=== PATIENT | female | born 1930 | race Caucasian/White ===

== ENCOUNTER 2017-02-15 18:28 | Inpatient (IN) | payer OTHER ==
[~2017-02-15] VITALS: Ht 160 cm; Wt 72.1 kg
[~2017-02-15 18:28] MED LIST: FAMVIR 500MG500 MG PO; LOPERAMIDE2 MG PO; METFORMIN HCL750 MG PO; NEURONTIN100 MG PO; RAMIPRIL2.5 MG PO; SIMVASTATIN40 MG PO; SUPER B COMPLEX1 CAP PO; TRIAMTERENE/HCT1 TAB PO; VALTREX 500MG500 MG PO; XARELTO20 MG PO; ZITHROMAX Z-PA250 M1 PO
[2017-02-15 19:10] LABS: ABSOLUTE BASOPHIL COUNT 0 /CUMM (0.0-0.2); ABSOLUTE EOSINOPHIL COUNT 0.3 /CUMM (0.0-0.7); ABSOLUTE GRANULOCYTE CT 5.3 /CUMM (1.4-6.5); ABSOLUTE LYMPH COUNT 2.1 /CUMM (1.2-3.4); ABSOLUTE MONOCYTE COUNT 0.6 /CUMM (0.10-0.60); BASOPHIL % 0.2 % (0.0-2.0); EOSINOPHIL % 3.4 % (0-5); GRANULOCYTE % 63.6 % (42.2-75.2); HEMATOCRIT 36.1 % (37-47); MEAN CORPUSCULAR HGB 29.6 PG (27.0-31.0); MEAN CORPUSCULAR HGB CONC 33.1 G/DL (33.0-37.0); MEAN CORPUSCULAR VOLUME 89.5 FL (81.0-99.0); MEAN PLATELET VOLUME 6.7 FL (7.4-10.4); PLATELET COUNT 258 /CUMM (130-400); RBC DISTRIBUTION WIDTH 15.7 % (11.5-14.5); RED BLOOD CELL CT 4.03 /CUMM (4.20-5.40); WHITE BLOOD CELL COUNT 8.3 /CUMM (4.8-10.8)
--- NOTE | 2017-02-15 19:16 | ED DYSPNEA/ASTHMA COMPLAINT ---
History of Present Illness General Chief Complaint: Dyspnea (COPD, CHF, Other) Stated Complaint: SOB COUGH Source: patient Exam Limitations: no limitations Vital Signs & Intake/Output Vital Signs & Intake/Output Vital Signs Date Time Temp Pulse Resp B/P B/P Pulse O2 O2 Flow FiO2 Mean Ox Delivery Rate 02/16 1956 66 20 188/83 97 Nasal 2.0L Cannula 02/15 1947 95 Nasal 2.0L Cannula 02/157 168/102 02/15 1837 97.7 90 22 90 Room Air Allergies Coded Allergies: codeine (Severe, NAUSEA 02/15/17) Reconcile Medications Acetaminophen 500 MG TABLET 2 TAB PO BID PAIN (Reported) Dabigatran (Pradaxa) 75 MG CAPSULE 1 CAP PO BID BLOOD THINNER (Reported) Simvastatin (Simvastatin*) 40 MG TABLET 1 TAB PO QPM CHOLESTEROL (Reported) Vitamin B Complex 1 EACH TABLET 1 TAB PO DAILY SUPPLEMENT (Reported) Triage Note: 86F C/O SOB X1 DAY, NO LEG SWELLING. DENIES WORSENING SOB WITH EXERTION. O2 SAT 86-92% AT REST. ENDORSES DRY NONPRODUCTIVE COUGH. EKG COMPLETED ON ARRIVAL REPORTS HEADACHE AND MILD DIZZINESS. -N/V/D. DENIES ACTIVE CP OR PAIN WITH BREATHING. AAOX3. Triage Nurses Notes Reviewed? yes Onset: Gradual Duration: day(s): (2-3) Timing: recent history Severity: mild, moderate Activities at Onset: EATING Associated Symptoms: SHORTNESS OF BREATH, PALPITATIONS HPI: 86 year old female with history of PAF on pradaxa, high cholesterol presents to the ER with chief complaint of shortness of breath and feeling like she has run a race after meals for 2-3 days. No fever, chills, cough. They did note her wheezing yesterday. TOday upon arrival to the ER she reports anterior chest pressure. Past History Travel History Traveled to [place] past 21 day No Medical History Any Pertinent Medical History? 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 No Review of Systems Review of Systems Constitutional: Denies: chills, fever. EENTM: Reports: no symptoms. Respiratory: Reports: short of breath. Denies: cough, sputum production. Cardiovascular: Reports: chest pain, palpitations. Denies: peripheral edema, syncope. GI: Denies: abdominal pain. Genitourinary: Reports: no symptoms. Musculoskeletal: Reports: no symptoms. Skin: Reports: no symptoms. Neurological/Psychological: Reports: no symptoms. Hematologic/Endocrine: Denies: bruising, bleeding, polyuria, polydipsia. Immunologic/Allergic: Reports: no symptoms. All Other Systems: Reviewed and Negative Physical Exam Physical Exam General Appearance: well developed/nourished, alert, awake Head: atraumatic, normal appearance Eyes: Bilateral: normal appearance, PERRL, EOMI. Ears, Nose, Throat: normal pharynx, normal ENT inspection, hearing grossly normal Neck: normal inspection, supple, full range of motion Respiratory: normal breath sounds, chest non-tender, no respiratory distress Cardiovascular: regular rate/rhythm Peripheral Pulses: 2+ radial (R), 2+ radial (L) Gastrointestinal: normal bowel sounds, soft, non-tender Extremities: normal inspection Neurologic/Psych: no motor/sensory deficits, awake, alert, oriented x 3, normal mood/affect Skin: intact, normal color, warm/dry Core Measures ACS in differential dx? Yes CVA/TIA Diagnosis No Sepsis Present: No Sepsis Focused Exam Completed? No Progress Differential Diagnosis: AMI, CHF, pulmonary embolism, pneumonia Plan of Care: Orders Procedure Date/time Status OXYGEN 02/17 UNK Complete OXYGEN DAILY CHARGE 02/17 UNK Complete OXYGEN 02/16 UNK Complete OXYGEN DAILY CHARGE 02/16 UNK Complete OXYGEN SETUP CHG 02/15 UNK Complete OXYGEN 02/15 UNK Complete OXYGEN TRANSPORT 02/15 UNK Complete Patient is pain-free after nitroglycerin ointment. Troponin is negative. Chest x-ray shows cardiomegaly mild vascular congestion. According to the son no history of congestive heart failure, no previous diuretic use. She had an outpatient echocardiogram done by Dr. Joshi approximately 3-4 months ago. Results are unknown. We'll discuss with hospitalist for admission. Diagnostic Imaging: Viewed by Me: Radiology Read. Discussed w/RAD: Radiology Read. CXR Impression: PATIENT: ROMEL SHAIKH PRESENT AGE: 86 PATIENT ACCOUNT NO: [id number] : [birth year] LOCATION: [facility] ORDERING PHYSICIAN: Angie Urban MD SERVICE DATE: 02/15/17 EXAM TYPE: RAD - XRY-CHEST XRAY , TWO VIEWS EXAMINATION: XR CHEST, 2 VIEWS CLINICAL INFORMATION: Shortness of breath. O2 sats 86 percent. Rule out pneumonia. COMPARISON: 12/31/2014 TECHNIQUE : AP and lateral views of the chest were obtained. FINDINGS: Cardiac silhouette is enlarged. There is pulmonary venous congestion and interstitial edema. No alveolar edema. No focal consolidation is identified. No pleural effusion or pneumothorax. Lung volumes appear decreased as compared to prior. Bones are osteopenic. No acute osseous abnormalities are identified in the thoracal lumbar spine. Calcific atherosclerosis is present in the abdominal aorta. Surgical clips are present in the right upper quadrant. IMPRESSION: Cardiomegaly with pulmonary venous congestion and interstitial edema, most consistent with CHF. DICTATED BY: Ibrahima Snell MD DATE/TIME DICTATED:02/15/171928 SUPPLY CHAIN DESIGN MANAGER:LISE DATE/TIME TRANSCRIBED:02/15/171928 CONFIDENTIAL, DO NOT COPY WITHOUT APPROPRIATE AUTHORIZATION. <Electronically signed in Other Vendor System> SIGNED BY: Ibrahima Snell MD 02/15/171934 Initial ED EKG: NSR, DIFFUSE ST DEPRESSIONS, PAC'S Prior EKG: unchanged Rhythm Strip: normal sinus rhythm Departure Departure Time of Disposition: 2099 Disposition: STILL A PATIENT Condition: Stable Clinical Impression Primary Impression: CHF (congestive heart failure) Referrals: Madelyn ROJAS,Robb Villareal MD,Hernan [place] (PCP/Family) Departure Forms: Customer Survey General Discharge Information Admission Note Spoke With: Du Armijo MD Documentation of Exam: Documentation of any treatments & extenuating circumstances including Concerns Regarding Discharge (functional status, medication knowledge or non-compliance, living conditions, etc.) that warrant an admission rather than observation: [ TELE MONITOR, SERIAL EKG/TORPONIN, CAREFUL DIURESIS, MONITOR I/O, ECHOCARDIOGRAM , CONTINUE PRADAXA, CARDIOLOGY CONSULTATION] Critical Care Note Critical Care Note Critical Care Time: 30-74 min
--- NOTE | 2017-02-15 19:35 | RADIOLOGY REPORT ---
EXAMINATION: XR CHEST, 2 VIEWS CLINICAL INFORMATION: Shortness of breath. O2 sats 86 percent. Rule out pneumonia. COMPARISON: 12/31/2014 TECHNIQUE: AP and lateral views of the chest were obtained. FINDINGS: Cardiac silhouette is enlarged. There is pulmonary venous congestion and interstitial edema. No alveolar edema. No focal consolidation is identified. No pleural effusion or pneumothorax. Lung volumes appear decreased as compared to prior. Bones are osteopenic. No acute osseous abnormalities are identified in the thoracal lumbar spine. Calcific atherosclerosis is present in the abdominal aorta. Surgical clips are present in the right upper quadrant. IMPRESSION: Cardiomegaly with pulmonary venous congestion and interstitial edema, most consistent with CHF.
[2017-02-15 19:43] LABS: PT 12.6 SEC (9.4-12.5); PTT 35 SEC (25-37)
[2017-02-15] MEDS ORDERED: PRADAXA75 M1 PO (20:20)
[2017-02-15] MEDS ORDERED: SIMVASTATIN40 M1 PO (20:20)
[2017-02-15] MEDS ORDERED: VITAMIN B COMP1 EAC1 PO (20:21)
[2017-02-15] MEDS ORDERED: ACETAMINOPHEN500 M4 PO (20:21)
--- NOTE | 2017-02-15 21:47 | History & Physical ---
Salty ROJAS,Geovanni 02/15/17 2146: General Information and HPI History of Present Illness: Ms. Fragoso is an 86-year-old female with past medical history of hypertension, hyperlipidemia, peripheral vascular disease, diet-controlled diabetes mellitus, breast cancer, dementia, atrial fibrillation on dabigatran who presents with shortness of breath. Patient has dementia and is unable to provide much of the history. Per her family, she began complaining of shortness of breath 2 days ago. She felt like she had run a race after walking a short distance from the kitchen to the living room. She also had associated heartburn and palpitations. Today, she had increased wheezing and labored breathing and he decided to bring her in for further evaluation. She sleeps on one pillow. She has had increased salt intake last week. She has also noticed increased bloating. No cough, fever, sick contacts, or chest pain. At time of interview, she said she felt good. She lives by herself, never smoker, drinker, or drugs. Allergies/Medications Allergies: Coded Allergies: codeine (Severe, NAUSEA 02/15/17) Home Med list Acetaminophen 500 MG TABLET 2 TAB PO BID PAIN (Reported) Dabigatran (Pradaxa) 75 MG CAPSULE 1 CAP PO BID BLOOD THINNER (Reported) Simvastatin (Simvastatin*) 40 MG TABLET 1 TAB PO QPM CHOLESTEROL (Reported) Vitamin B Complex 1 EACH TABLET 1 TAB PO DAILY SUPPLEMENT (Reported) Past History Travel History Traveled to [place] past 21 day No Medical History Neurological: NONE EENT: HARD OF HEARING Cardiovascular: hypertension, hyperlipidemia, left leg claudication Respiratory: NONE Gastrointestinal: NONE Hepatic: NONE Renal: NONE Musculoskeletal: NONE Psychiatric: NONE Endocrine: diabetes 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 EENTM: Reports: no symptoms. Cardiovascular: Reports: see HPI. Respiratory: Reports: see HPI. GI: Reports: see HPI. Genitourinary: Reports: no symptoms. Musculoskeletal: Reports: no symptoms. Skin: Reports: no symptoms. Neurological/Psychological: Reports: no symptoms. Hematologic/Endocrine: Reports: no symptoms. Immunologic/Allergic: Reports: no symptoms. All Other Systems: Reviewed and Negative Exam & Diagnostic Data Last 24 Hrs of Vital Signs/I&O Vital Signs Date Time Temp Pulse Resp B/P B/P Pulse O2 O2 Flow FiO2 Mean Ox Delivery Rate 02/15 2245 98.6 68 18 150/82 95 Nasal 2.0L Cannula 02/15 2245 95 Nasal 2.0L Cannula 02/156 98.5 70 20 170/84 96 Nasal 2.0L Cannula 02/15 1956 66 20 188/83 97 Nasal 2.0L Cannula 02/15 1947 95 Nasal 2.0L Cannula 02/15 1847 168/102 02/15 1837 97.7 90 22 90 Room Air Physical Exam General Appearance Alert, Oriented X3, Cooperative, No Acute Distress Skin No Rashes HEENT Atraumatic Cardiovascular Regular Rate, Normal S1, Normal S2, systolic murmur, JVD Lungs crackles Abdomen Normal Bowel Sounds, Soft, mass in middle of abdomen, mildly tender to palpation Extremities 1+ pitting edema bilaterally Vascular Normal Pulses Last 24 Hrs of Labs/Dagoberto: Laboratory Tests 02/15/17 1855: Anion Gap 14, Estimated GFR > 60, BUN/Creatinine Ratio 22.0, Glucose 146 H, Calcium 9.6, Total Bilirubin 1.3, AST 37 H, ALT 40, Alkaline Phosphatase 70, Troponin I 0.02, Xox-O-Vcuygmshjjt Pept 1130 H, Total Protein 7.9, Albumin 4.6, Globulin 3.3, Albumin/Globulin Ratio 1.4, PT 12.6 H, INR 1.20 H, APTT 35, CBC w Diff NO MAN DIFF REQ, RBC 4.03 L, MCV 89.5, MCH 29.6, RDW 15.7 H, MPV 6.7 L , Gran % 63.6, Lymphocytes % 25.1, Monocytes % 7.7, Eosinophils % 3.4, Basophils % 0.2, Absolute Granulocytes 5.3, Absolute Lymphocytes 2.1, Absolute Monocytes 0.6, Absolute Eosinophils 0.3, Absolute Basophils 0, PUBS MCHC 33.1 Assessment/Plan Assessment: Ms. Fragoso is an 86-year-old female with past medical history of hypertension, hyperlipidemia, peripheral vascular disease, diet-controlled diabetes mellitus, breast cancer, dementia, atrial fibrillation on dabigatran who presents with shortness of breath. On presentation, vital signs were T 97.7, HR 90, RR 22, BP 168/102, saturating 90% on room air. Laboratories were significant for normal CBC, sodium 146, glucose 146, AST 37, calcium 9.6, total bilirubin 1.3, ALT 40, alkaline phosphatase 70, troponin 0.02, BNP 1130, INR 1.20. Chest x-ray was consistent with CHF. She received furosemide and nitroglycerin in the emergency room. She'll be admitted to telemetry and treated for the following problems: 1. New onset heart failure #New onset heart failure: Patient had a recent echocardiogram 3 months ago as an outpatient that was apparently normal though we cannot see this record. The last echocardiogram in the system was in 2013 that was normal. It is unclear what caused her to now go into heart failure. Potentially, she has had rapid ventricular rate with her atrial fibrillation causing cardiomyopathy. Additionally, she has had poor diet for the past week with increased salt intake that can cause an acute decompensation. She has responded to furosemide with appropriate diuresis and improvement in respiratory symptoms. -Continue furosemide 20 mg IV daily -Cardiology consult -Diltiazem 30 mg every 8 hours -EKG and troponins 3 -Lipid panel -Daily weights -TTE -TSH/T4 #Chronic medical problem: Diabetes mellitus, atrial fibrillation, hyperlipidemia -Continue home dabigatran and simvastatin -Accu-Cheks DVT prophylaxis with enoxaparin Heart healthy diet DNR/DNI As Ranked By This Provider Problem List: 1. CHF (congestive heart failure) Core Measures/Misc (11/04) Acute Coronary Syndrome ACS Diagnosis: No Congestive Heart Failure Congestive Heart Failure Diagnosis Yes Last Known EF % 65 No THOMAS/ARB d/t Medical Contraindication Cerebrovascular Accident CVA/TIA Diagnosis: No VTE (View Protocol) VTE Risk Factors Age>40 No Mechanical VTE Prophylaxis d/t N/A MechProphylax Ordered No VTE Pharm Prophylaxis d/t NA PharmProphylax ordered Sepsis (View protocol) Sepsis Present: No Aleksander ROJAS, [facility] 02/15/17 2250: Attending MD Review Statement Attending Statement Attending MD Statement: examined this patient, discuss w/resident/PA/LENS SILVERER, agreed w/resident/PA/LENS SILVERER, discussed with family, reviewed images, amended to note Attending Assessment/Plan: 86 yo F with h/o HTN, HLD, T2DM (not on meds), Paroxysmal Afib on pradaxa, [employer], dementia with short term memory loss, is brought in by family for 3 day h/o exertional dyspnea. Son who is a PA at an Urgent care clinic provides history. At baseline, patient is sedentary but can carry out activities of daily living. She lives alone, makes her breakfast and has an aide who comes in twice a day. He reports patient was doing well until after [place] when she developed exertional dyspnea (felt like she had run a marathon), palpitations and heartburn symptoms. Family also noted that she gets short of breath especially after a meal and today was noted to be wheezing. They denied any recent weight gain or lower extremity edema. Patient did consume salty food over the holidays. Patient has no underlying cardiac history, follows with Dr. Joshi for Afib, had an echo 3 months back that was normal. Upon ER arrival, she c/o chest pressure symptoms and was given nitropaste with some effect. Vitals stable. Exam: AAO, in no respiratory distress, able to speak in full sentences, MMM, JVD+, Chest bibasilar crackles+, Heart S1S2 regular, systolic murmur+, Abd soft, mild discomfort on left abdomen, LE: 1+ pitting edema. Peripheral pulses well felt. Labs: no leukocytosis, INR 1.20, Na 146, creat 0.5, glucose 146, trop neg, proBNP 1130. CXR: cardiomegaly with pulmonary venous congestion and interstitial edema, most consistent with CHF. EKG: SR with multiple PVC's. Echo (2014): EF > 65%, mild LVH, mild to mod TR. Assessment and plan: 1. New onset congestive heart failure 2. Chest pain at rest 3. Paroxysmal atrial fibrillation 4. Essential hypertension - Admit to telemetry - Daily weights, strict I/O's - IV lasix 20 daily, monitor renal functions and uptitrate lasix based on diuresis - Serial EKG and troponin - Obtain Echo - Cardio consult - Monitor for arrhythmias - Unclear as to why patient is not on any rate control medications no CCB or BB. It is possible that she may have underlying episodes of rapid Afib which she experiences as palpitations, thus placing her at risk for CHF in addition to her salt intake. - Initiate cardizem 30 mg Q8 - Check TSH and free T4 - Continue pradaxa and simvastatin - Diabetes last A1c was 7.2 (Nov 2016), monitor accucheks, place on insulin only if sugars > 200 DVT ppx Pradaxa. DNR/I. Nazanin ROJAS,Travis 02/16/17 0056: Resident Review Statement Resident Statement: examined this patient, discussed with advisory intern, agreed with advisory intern, discussed with family, reviewed EMR data (avail) Other Findings: Patient is an 86-year-old female with significant past medical history of hypertension, not on medication, hyperlipidemia on medication, diabetes -diet controlled, history of breast cancer, atrial fibrillation on dabigatran, presented with chief complaints of gradually progressive shortness of breath since last 3 days. Most of the history is taken from the family including son and the daughter. Patient is hard of hearing, although taking part in conversation. According to the son, patient started having shortness of breath since February 13. Initially she was complaining of palpitation which lasted for a few seconds and afterwards she felt short of breath, and told the son that she feels like she had to run a race while walking, even from kitchen to the living room. She was also feeling fullness in her belly, heartburn. Today she started wheezing, so back to the [facility]. Recently she is not compliant with her medication, she had increased salt and fluid intake. She denies for any chest pain, diaphoresis, dizziness, nausea, vomiting, fever, sick contacts. She is following Dr. Joshi. Her last visit was 1-2 weeks ago. She had a echocardiogram around 3 months ago and according to the son, everything was fine. According to son, she has become more demented since last 2 or 3 years and had evaluation for it. No etiology has been found till now. She does not have recent memories. She lives alone, and person from healthcare comes twice a week.. ED course -vital signs temperature 97.7, pulse 90, respiratory rate 22, blood pressure 168/102, SPO2 90% on room air. Blood workup showed hemoglobin 12.0, hematocrit 36.1, platelet count 258, serum sodium 146, potassium 3.7, BUN 11, creatinine 0.5, glucose 146, AST 37, proBNP 1130, troponin 0.02.EKG showed -NSR, LA - 152, QRS 100.CXR showed -Cardiomegaly with pulmonary venous congestion and interstitial edema, most consistent with CHF. She was given 20 milligrams of Lasix, and nitroglycerin ointment in the ED. She was admitted to telemetry floor for further cardiac monitoring. Assessment and plan - Patient is 86-year-old female with significant past medical history of atrial fibrillation on anticoagulation and diabetes presented with chief complaints of sudden onset of palpitation, followed by shortness of breath . Chest x-ray showed evidence of pulmonary edema with congestion. It seems patient had CHF, which was precipitated either by uncontrolled salt intake/food intake or underlying NC or paroxysmal atrial fibrillation. It can be a possibility that she had PE. Acute CHF under evaluation * We will admit the patient to telemetry floor * We'll do serial troponins and EKG * We will start the patient on injection furosemide 20 milligrams IV daily * Daily weight * Strick intake output charting * We will start the patient on tablet diltiazem, 30 milligrams every 8 * Will obtain cardiology recommendation * follow echo Atrial fibrillation on oral anticoagulant * We will continue tablet Pradaxa 75 milligrams twice a day Hyperlipidemia - * We'll continue the patient on tablet Atorvastatin 40 Milligrams Daily * We will follow the lipid profile tomorrow Type 2 diabetes - * Fingerstick every 6 hourly Diet-heart healthy diet with fluid restriction 1000cc, low sodium diet DVT prophylaxis -Pradaxa CODE STATUS -DNR/DNI ( reconfirmed from Son)
[2017-02-15 22:45] VITALS: BP 150/82
--- NOTE | 2017-02-15 22:51 | Admission Certification ---
Admission Certification Certification Statement - As attending physician, I certify that at the time of - admission, based on clinical presentation, severity of - symptoms, need for further diagnostic testing and - therapeutic interventions, and risk of adverse outcomes - without in-hospital treatment, in my clinical assessment, - this patient requires an acute hospital stay for a minimum - of two nights or longer. I have also considered psychsocial - factors such as support system, advanced age, financial - issues, cognitive issues, and failed out-patient treatments, - past re-admission history, safety of patient, and lack of - compliance as applicable. Specific rationale supporting this admission is: New onset congestive heart failure.
[2017-02-16 06:52] VITALS: BP 136/60
--- NOTE | 2017-02-16 08:41 | PN- Housestaff ---
Blade ROJAS,[facility] 02/16/17 0841: Subjective Follow-up For: New onset congestive heart failure Subjective: Patient seen and examined. Offers no complaints. No overnight acute events. Denies Shortness of breath chest pain fevers chills. Review of Systems Constitutional: Reports: see HPI. Objective Last 24 Hrs of Vital Signs/I&O Vital Signs Date Time Temp Pulse Resp B/P B/P Pulse O2 O2 Flow FiO2 Mean Ox Delivery Rate 02/16 0800 Nasal 2.0L Cannula 02/16 0656 78 136/60 02/16 0652 98.5 72 18 136/60 97 Nasal Cannula 02/16 0233 80 146/78 02/16 0000 Nasal 2.0L Cannula 02/15 2245 98.6 68 18 150/82 95 Nasal 2.0L Cannula 02/15 224 95 Nasal 2.0L Cannula 02/15 2146 98.5 70 20 170/84 96 Nasal 2.0L Cannula 02/15 1956 66 20 188/83 97 Nasal 2.0L Cannula 02/15 1947 95 Nasal 2.0L Cannula 02/15 1847 168/102 02/15 1837 97.7 90 22 90 Room Air Intake & Output 02/16 1600 02/16 0800 02/16 0000 Intake Total 120 Output Total 600 Balance -480 Intake, Oral 120 Output, Urine 600 Patient 159 lb 160 lb Weight Weight Chair scale Measurement Method Physical Exam General Appearance: Alert, Oriented X3, Cooperative Current Medications: Current Medications Sig/Denisa Start time Last Medication Dose Route Stop Time Status Admin Acetaminophen 650 MG Q6-PRN PRN 02/16 0030 AC 02/16 PO 0045 Atorvastatin Calcium 40 MG 1700 02/16 1700 AC PO Dabigatran 75 MG BID 02/15 2245 AC 02/16 PO 0914 Diltiazem HCl 30 MG Q8 02/16 0112 AC 02/16 PO 0656 Furosemide 20 MG DAILY 02/16 1000 AC 02/16 IV 0914 Furosemide 0 .STK-MED ONE 02/15 2023 DC IV Furosemide 20 MG ONCE ONE 02/15 2000 DC 02/15 IV 02/15 2001 2030 Insulin Aspart 0 TIDAC 02/16 1200 AC 02/16 SC 1221 Magnesium Sulfate 1 GM ONCE ONE 02/16 1115 AC 02/16 Dextrose/Water 100 ML IV 02/16 1514 1221 Nitroglycerin 0 .STK-MED ONE 02/15 193 [facility] Nitroglycerin 0.5 GM ONCE ONE 02/15 1930 DC 02/15 TOP 02/15 Potassium Chloride 40 MEQ ONCE ONE 02/16 1115 DC 02/16 PO 02/16 1116 1221 Last 24 Hrs of Lab/Dagoberto Results Last 24 Hrs of Labs/Mics: Laboratory Tests 02/16/17 0646: Anion Gap 14, Estimated GFR > 60, BUN/Creatinine Ratio 18.0, Magnesium 1.4 L, Troponin I 0.03, Triglycerides 102, Cholesterol 147, LDL Cholesterol, Calc 70, HDL Cholesterol 57, Cholesterol/HDL Ratio 3, TSH &T3 &Free T4 Intrp 1.130 02/16/17 0100: Troponin I 0.03 02/15/17 1855: Anion Gap 14, Estimated GFR > 60, BUN/Creatinine Ratio 22.0, Glucose 146 H, Calcium 9.6, Total Bilirubin 1.3, AST 37 H, ALT 40, Alkaline Phosphatase 70, Troponin I 0.02, Ghx-D-Tbbtnrqknkr Pept 1130 H, Total Protein 7.9, Albumin 4.6, Globulin 3.3, Albumin/Globulin Ratio 1.4, PT 12.6 H, INR 1.20 H, APTT 35, CBC w Diff NO MAN DIFF REQ, RBC 4.03 L, MCV 89.5, MCH 29.6, RDW 15.7 H, MPV 6.7 L , Gran % 63.6, Lymphocytes % 25.1, Monocytes % 7.7, Eosinophils % 3.4, Basophils % 0.2, Absolute Granulocytes 5.3, Absolute Lymphocytes 2.1, Absolute Monocytes 0.6, Absolute Eosinophils 0.3, Absolute Basophils 0, PUBS MCHC 33.1 Assessment/Plan Assessment: Ms. Fragoso is an 86-year-old female with past medical history of hypertension, hyperlipidemia, peripheral vascular disease, diet-controlled diabetes mellitus, breast cancer, dementia, atrial fibrillation on dabigatran who presents with shortness of breath. On presentation, vital signs were T 97.7, HR 90, RR 22, BP 168/102, saturating 90% on room air. Laboratories were significant for normal CBC, sodium 146, glucose 146, AST 37, calcium 9.6, total bilirubin 1.3, ALT 40, alkaline phosphatase 70, troponin 0.02, BNP 1130, INR 1.20. Chest x-ray was consistent with CHF. She received furosemide and nitroglycerin in the emergency room. She'll be admitted to telemetry and treated for the following problems: 1. New onset heart failure #New onset heart failure: Patient had a recent echocardiogram 3 months ago as an outpatient that was apparently normal though we cannot see this record. The last echocardiogram in the system was in 2013 that was normal. It is unclear what caused her to now go into heart failure. Potentially, she has had rapid ventricular rate with her atrial fibrillation causing cardiomyopathy. Additionally, she has had poor diet for the past week with increased salt intake that can cause an acute decompensation. She has responded to furosemide with appropriate diuresis and improvement in respiratory symptoms. * Continue furosemide 20 mg IV daily * Cardiology consult palced with dr. Gutierrez * Discontinue Diltiazem 30 mg * Lipid panel WNL * Daily weights, monitor ins and outs,fluid restriction 1000cc, low sodium diet * Echocardiogram pending * TSH/T4 within normal limits #Chronic medical problem: Diabetes mellitus, atrial fibrillation, hyperlipidemia -Continue home dabigatran and simvastatin -Accu-Cheks and sliding SS DVT prophylaxis with enoxaparin Heart healthy diet DNR/DNI Problem List: 1. CHF (congestive heart failure) Pain Ratin Pain Location: n/a Pain Goal: Pain 4 or less Pain Plan: prn Tomorrow's Labs & Rationales: cbc bep Karena ROJAS,[facility] 02/16/17 1320: Attending MD Review Statement Attending Statement Attending MD Statement: examined this patient, discuss w/resident/PA/CANDY MIXER, agreed w/resident/PA/CANDY MIXER, discussed with family, reviewed EMR data (avail), discussed with nursing, amended to note Attending Assessment/Plan: Patient seen and examined. Resting comfortably not in any acute distress. No events overnight reported by nursing staff. She remains in normal sinus rhythm on telemetry. She denies chest pain. She denies shortness of breath. She denies palpitations. Family reports she is unable to provide a reliable history however has been no complaints of palpitations until the last few days. On examination heart sounds are regular. She has no jugular venous distention Lungs are clear to auscultation bilaterally. Abdomen is soft and nontender. She has no peripheral edema. Recommendations: -Patient was not on any rate control medications at home or any antihypertensive medications. It is likely she has not had the need for these medications prior to hospitalization. Following discussion with the cardiology service we have agreed on discontinuing the Cardizem that was started yesterday a monitor patient on telemetry service under 24 hours and keep an anion her blood pressure. If she remains in normal sinus rhythm and blood pressure is acceptable we will hold off starting any new medications and having the patient follow-up with her freelance recruiter as an outpatient. Outpatient cardiac monitoring may be considered particularly if patient continues to report palpitations on and off at home. -Clinically she does not appear volume overloaded at present. Chest x-ray did show evidence of volume congestion and interstitial edema. I agree with continuing IV Lasix 20 mg today. We will reevaluate need for diuretic therapy at the time of discharge. - Monitor input output daily with and serum chemistry. -Supplement potassium orally and repeat chemistry in a.m.
--- NOTE | 2017-02-16 14:23 | Cons- Cardiology ---
General Information and HPI Consulting Request Date of Consult: 02/16/17 Requested By: Aleksander ROJAS,Du Reason for Consult: Atrial fibrillation Source of Information: patient, family, old records Exam Limitations: poor historian History of Present Illness: This is an 86-year-old female with a past medical history of paroxysmal atrial fibrillation on Pradaxa, dementia, diet-controlled diabetes, and hyperlipidemia who presented to [facility] with approximate 2 days of increased dyspnea. The patient is a somewhat limited historian but I spoke to her family and apparently she was more short of breath in the last 2 days and also had some intermittent palpitations. No increasing lower extremity edema. Did consume some extra salty food over the recent holidays. Apparently she saw Dr. Joshi in the office quite recently and was in her usual state of health with no active complaints. She denied any headache, slurring of speech, or syncope. On my interview with her today she denied any active symptoms and feels at baseline. Denies any recent bleeding or recurrent falls. On my interview with her she denied any chest pain. Allergies/Medications Allergies: Coded Allergies: codeine (Severe, NAUSEA 02/15/17) Home Med List: Acetaminophen 500 MG TABLET 2 TAB PO BID PAIN (Reported) Dabigatran (Pradaxa) 75 MG CAPSULE 1 CAP PO BID BLOOD THINNER (Reported) Simvastatin (Simvastatin*) 40 MG TABLET 1 TAB PO QPM CHOLESTEROL (Reported) Vitamin B Complex 1 EACH TABLET 1 TAB PO DAILY SUPPLEMENT (Reported) Current Medications: Current Medications Sig/Denisa Start time Last Medication Dose Route Stop Time Status Admin Acetaminophen 650 MG Q6-PRN PRN 02/16 0030 AC 02/16 PO 0045 Atorvastatin Calcium 40 MG 1700 02/16 1700 AC PO Dabigatran 75 MG BID 02/15 2245 AC 02/16 PO 0914 Diltiazem HCl 30 MG Q8 02/16 0112 DC 02/16 PO 0656 Furosemide 20 MG DAILY 02/16 1000 AC 02/16 IV 0914 Furosemide 0 .STK-MED ONE 02/15 2023 DC IV Furosemide 20 MG ONCE ONE 02/16 2000 DC 02/15 IV 02/15 2001 2030 Insulin Aspart 0 TIDAC 02/16 1200 AC 02/16 SC 1221 Magnesium Sulfate 1 GM ONCE ONE 02/16 1115 AC 02/16 Dextrose/Water 100 ML IV 02/16 1514 1221 Nitroglycerin 0 .STK-MED ONE 02/15 1934 DC TOP Nitroglycerin 0.5 GM ONCE ONE 02/15 1930 DC 02/15 TOP 02/15 1931 193 Potassium Chloride 40 MEQ ONCE ONE 02/16 1115 DC 02/16 PO 02/16 1116 1221 Review of Systems Review of Systems: Review of systems as per HPI. The remainder of a 10 point review of systems was reviewed and was otherwise negative. 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 Home Services at Home: Home Health Aide Smoking Status: Never Smoked Exam & Diagnostic Data Vital Signs and I&O Vital Signs Date Time Temp Pulse Resp B/P B/P Pulse O2 O2 Flow FiO2 Mean Ox Delivery Rate 02/16 0800 Nasal 2.0L Cannula 02/16 0656 78 136/60 02/16 0652 98.5 72 18 136/60 97 Nasal Cannula 02/16 0233 80 146/78 02/16 0000 Nasal 2.0L Cannula 02/15 2245 98.6 68 18 150/82 95 Nasal 2.0L Cannula 02/15 2245 95 Nasal 2.0L Cannula 02/15 2146 98.5 70 20 170/84 96 Nasal 2.0L Cannula 02/15 1956 66 20 188/83 97 Nasal 2.0L Cannula 02/15 194 95 Nasal 2.0L Cannula 02/15 1847 168/102 02/15 183 97.7 90 22 90 Room Air Intake & Output 02/16 1600 02/16 0800 02/16 0000 02/15 1600 02/15 0800 02/15 0000 Intake Total 120 Output Total 600 Balance -480 Intake, Oral 120 Output, Urine 600 Patient 159 lb 160 lb Weight Weight Chair scale Measurement Method Physical Exam: General: no apparent distress. Alert. On nasal cannula. Eyes: No obvious scleral icterus. HEENT: No jugular venous distention or abnormal jugular venous pulsations. Cardiovascular: Normal intensity S1/S2. Regular, one out of 6 systolic murmur Respiratory: Lungs clear to auscultation bilaterally. Abdomen: Soft, nontender with no guarding or rebound tenderness. Musculoskeletal: No clubbing or cyanosis noted, no edema Skin: Warm Neurologic: No gross focal deficits noted. Labs/Dagoberto Results: Laboratory Tests 02/16 02/16 02/15 0646 0100 1855 Chemistry Sodium (137 - 145 mmol/L) 145 146 H Potassium (3.5 - 5.1 mmol/L) 3.4 L 3.7 Chloride (98 - 107 mmol/L) 104 104 Carbon Dioxide (22 - 30 mmol/L) 28 28 Anion Gap (5 - 16) 14 14 BUN (7 - 17 mg/dL) 9 11 Creatinine (0.5 - 1.0 mg/dL) 0.5 0.5 Estimated GFR (>60 ml/min) > 60 > 60 BUN/Creatinine Ratio (7 - 25 %) 18.0 22.0 Glucose (65 - 99 mg/dL) 146 H Calcium (8.4 - 10.2 mg/dL) 9.6 Magnesium (1.6 - 2.3 mg/dL) 1.4 L Total Bilirubin (0.2 - 1.3 mg/dL) 1.3 AST (14 - 36 U/L) 37 H ALT (9 - 52 U/L) 40 Alkaline Phosphatase (<127 U/L) 70 Troponin I (< 0.11 ng/ml) 0.03 0.03 0.02 Uyj-S-Bhdggidions Pept (<125 pg/mL) 1130 H Total Protein (6.3 - 8.2 g/dL) 7.9 Albumin (3.5 - 5.0 g/dL) 4.6 Globulin (1.9 - 4.2 gm/dL) 3.3 Albumin/Globulin Ratio (1.1 - 2.2 %) 1.4 Triglycerides (<150 mg/dL) 102 Cholesterol (<200 MG/DL) 147 LDL Cholesterol, Calc (65 - 129 mg/dL) 70 HDL Cholesterol (40 - 60 mg/dL) 57 Cholesterol/HDL Ratio (0.00 - 4.23 %) 3 TSH &T3 &Free T4 Intrp (0.270 - 4.20 uIU/mL) 1.130 Coagulation PT (9.4 - 12.5 SEC) 12.6 H INR (0.90 - 1.19) 1.20 H APTT (25 - 37 SEC) 35 Hematology CBC w Diff NO MAN DIFF REQ WBC (4.8 - 10.8 /CUMM) 8.3 RBC (4.20 - 5.40 /CUMM) 4.03 L Hgb (12.0 - 16.0 G/DL) 12.0 Hct (37 - 47 %) 36.1 L MCV (81.0 - 99.0 FL) 89.5 MCH (27.0 - 31.0 PG) 29.6 RDW (11.5 - 14.5 %) 15.7 H Plt Count (130 - 400 /CUMM) 258 MPV (7.4 - 10.4 FL) 6.7 L Gran % (42.2 - 75.2 %) 63.6 Lymphocytes % (20.5 - 51.1 %) 25.1 Monocytes % (1.7 - 9.3 %) 7.7 Eosinophils % (0 - 5 %) 3.4 Basophils % (0.0 - 2.0 %) 0.2 Absolute Granulocytes (1.4 - 6.5 /CUMM) 5.3 Absolute Lymphocytes (1.2 - 3.4 /CUMM) 2.1 Absolute Monocytes (0.10 - 0.60 /CUMM) 0.6 Absolute Eosinophils (0.0 - 0.7 /CUMM) 0.3 Absolute Basophils (0.0 - 0.2 /CUMM) 0 PUBS MCHC (33.0 - 37.0 G/DL) 33.1 Diagnostic Data EKG Results Tracing was personally reviewed and shows sinus rhythm at [address] abnormality CXR Results IMPRESSION: Cardiomegaly with pulmonary venous congestion and interstitial edema, most consistent with CHF. Other Results Telemetry tracings were personally reviewed and shows sinus rhythm Assessment/Plan Assessment/Plan 1. Shortness of breath and palpitations possibly due to a recent episode of atrial fibrillation although she is now in sinus rhythm 2. Possible transient volume overloaded due to a possible episode of A. fib and recent increased salt intake without a known history of congestive heart failure 3. Dementia 4. Diet-controlled diabetes 5. History of hyperlipidemia The patient is in sinus rhythm and while she may have had some transient volume overload she currently appears euvolemic and tells me she is currently asymptomatic. Would wean off nasal cannula oxygen and monitor for any recurrent symptoms. I do not think the patient requires standing diuretics at this time. Her anticoagulation should be continued. Her statin therapy should be continued. Hold off on starting AV thea blockers unless we see evidence of rapid atrial fibrillation. Amadou Hutchins MD [facility] Consult Acknowledgment - Thank you for your consult request.
[2017-02-16 14:38] VITALS: BP 152/70
[2017-02-16 23:06] VITALS: BP 148/62
[2017-02-17 06:46] VITALS: BP 152/82
[2017-02-17 08:32] LABS: ABSOLUTE BASOPHIL COUNT 0 /CUMM (0.0-0.2); ABSOLUTE EOSINOPHIL COUNT 0.3 /CUMM (0.0-0.7); ABSOLUTE GRANULOCYTE CT 5.2 /CUMM (1.4-6.5); ABSOLUTE LYMPH COUNT 1.9 /CUMM (1.2-3.4); ABSOLUTE MONOCYTE COUNT 0.6 /CUMM (0.10-0.60); BASOPHIL % 0.6 % (0.0-2.0); EOSINOPHIL % 3.1 % (0-5); GRANULOCYTE % 65.6 % (42.2-75.2); HEMATOCRIT 32.4 % (37-47); MEAN CORPUSCULAR HGB CONC 33.8 G/DL (33.0-37.0); MEAN CORPUSCULAR VOLUME 88.7 FL (81.0-99.0); MEAN PLATELET VOLUME 6.9 FL (7.4-10.4); PLATELET COUNT 236 /CUMM (130-400); RBC DISTRIBUTION WIDTH 15.5 % (11.5-14.5); RED BLOOD CELL CT 3.65 /CUMM (4.20-5.40)
--- NOTE | 2017-02-17 10:24 | PN- Housestaff ---
See Addendum Subjective Follow-up For: Acute CHF secondary to supraventricular tachycardia Complaints: no complaints Tele-Events Since Last Visit: No any overnight events Subjective: Patient is seen and examined at the bedside. She doesn't have any active complaints. She doesn't have any difficulty in breathing while walking and edema in the legs has been improved. Review of Systems Constitutional: Denies: no symptoms. Objective Last 24 Hrs of Vital Signs/I&O Vital Signs Date Time Temp Pulse Resp B/P B/P Pulse O2 O2 Flow FiO2 Mean Ox Delivery Rate 02/17 0646 98.4 79 18 152/82 93 Nasal Cannula 02/17 0000 Nasal 1.0L Cannula 02/16 2306 98.6 69 18 148/62 94 Nasal Cannula 02/16 1600 94 Nasal 1.0L Cannula 02/16 1438 98.6 65 18 152/70 97 02/16 1408 94 Nasal 1.0L Cannula Intake & Output 02/17 1600 02/17 0800 02/17 0000 Intake Total 120 550 Output Total 400 350 Balance -280 200 Intake, Oral 120 550 Number 1 Bowel Movements Output, Urine 400 350 Physical Exam General Appearance: Alert, Oriented X3, Cooperative, No Acute Distress Cardiovascular: Normal S1, Normal S2 Lungs: Clear to Auscultation, Normal Air Movement Abdomen: Soft, No Tenderness Neurological: Normal Speech Extremities: No Clubbing, No Cyanosis, No Edema Current Medications: Current Medications Sig/Denisa Start time Last Medication Dose Route Stop Time Status Admin Acetaminophen 650 MG Q6-PRN PRN 02/16 0030 AC 02/16 PO 0045 Atorvastatin Calcium 40 MG 1700 02/16 1700 AC 02/16 PO 1709 Dabigatran 75 MG BID 02/15 2245 AC 02/17 PO 0930 Diltiazem HCl 30 MG Q8 02/16 0112 DC 02/16 PO 0656 Furosemide 20 MG DAILY 02/16 1000 DC 02/16 IV 0914 Insulin Aspart 0 TIDAC 02/16 1200 AC 02/17 SC 0937 Magnesium Sulfate 1 GM ONCE ONE 02/16 1115 DC 02/16 Dextrose/Water 100 ML IV 02/16 1514 1221 Last 24 Hrs of Lab/Dagoberto Results Last 24 Hrs of Labs/Mics: Laboratory Tests 02/17/17 0645: Anion Gap 12, Estimated GFR > 60, BUN/Creatinine Ratio 22.0, Magnesium 1.7, CBC w Diff NO MAN DIFF REQ, RBC 3.65 L, MCV 88.7, MCH 30.0, RDW 15.5 H, MPV 6.9 L , Gran % 65.6, Lymphocytes % 23.5, Monocytes % 7.2, Eosinophils % 3.1, Basophils % 0.6, Absolute Granulocytes 5.2, Absolute Lymphocytes 1.9, Absolute Monocytes 0.6, Absolute Eosinophils 0.3, Absolute Basophils 0, PUBS MCHC 33.8 Assessment/Plan Assessment: Ms. Fragoso is an 86-year-old female with past medical history of hypertension, hyperlipidemia, peripheral vascular disease, diet-controlled diabetes mellitus, breast cancer, dementia, atrial fibrillation on dabigatran who presents with shortness of breath. On presentation, vital signs were T 97.7, HR 90, RR 22, BP 168/102, saturating 90% on room air. Laboratories were significant for normal CBC, sodium 146, glucose 146, AST 37, calcium 9.6, total bilirubin 1.3, ALT 40, alkaline phosphatase 70, troponin 0.02, BNP 1130, INR 1.20. Chest x-ray was consistent with CHF. She received furosemide and nitroglycerin in the emergency room. Assessment and plan - Acute heart failure secondary to SVT - * Discharge today on the same medication she was on at home. * Advised to follow-up with Dr. Joshi, within a week of discharge. * Advised to decrease the amount of salt intake. Problem List: 1. CHF (congestive heart failure) 2. Hyponatremia 3. Weakness Pain Ratin Pain Location: n/a Pain Goal: Remain pain free Pain Plan: avoid NSAIDs Tomorrow's Labs & Rationales: n/a DVT/Prophylaxis: early ambulation low risk
--- NOTE | 2017-02-17 11:02 | Patient Discharge Instructions ---
Discharge Instructions General Discharge Information You were seen/treated for: You were treated here for shortness of breath, probably secondary to increase in your heart rate secondary to paroxysmal atrial fibrillation Special Instructions: Please follow-up with your strategic planning consultant within a week of discharge Please come to emergency department if he again have any episode of increased heart rate, along with shortness of breath. Please take the medication as advised Diet Recommended Diet: Heart Healthy Activity Full Activity/No Limits: No (as tolerated) Acute Coronary Syndrome Inclusion Criteria At DC or during hospital stay patient has or had the following: ACS DIAGNOSIS No Discharge Core Measures Meds if any: Prescribed or Continued at Discharge Meds if any: NOT Prescribed or Continued at Discharge Congestive Heart Failure Inclusion Criteria At DC or during hospital stay patient has or had the following: CHF DIAGNOSIS Yes Discharge Core Measures Meds if any: Prescribed or Continued at Discharge THOMAS/ARB for EF <40% No Meds if any: NOT Prescribed or Continued at Discharge Cerebrovascular accident Inclusion Criteria At DC or during hospital stay patient has or had the following: CVA/TIA Diagnosis No Discharge Core Measures Meds if any: Prescribed or Continued at Discharge Meds if any: NOT Prescribed or Continued at Discharge Venous thromboembolism Inclusion Criteria VTE Diagnosis No VTE Type NONE VTE Confirmed by (Test) NONE Discharge Core Measures - Per Current guidelines, there needs to be overlap - treatment for the first 5 days of Warfarin therapy. - If discharged on Warfarin prior to 5 days of - overlap therapy, the patient will need to be - assessed for post discharge needs including - *Post discharge parental anticoagulation - *Warfarin and/or parental anticoagulation education - *Follow up date to check INR post discharge At least 5 days overlap therapy as Inpatient No Meds if any: Prescribed or Continued at Discharge Note: Overlap Therapy is Warfarin and Anticoagulant Meds if any: NOT Prescribed or Continued at Discharge
[2017-02-17 14:07] LABS: ABSOLUTE BASOPHIL COUNT 0 /CUMM (0.0-0.2); ABSOLUTE EOSINOPHIL COUNT 0.3 /CUMM (0.0-0.7); ABSOLUTE GRANULOCYTE CT 5.6 /CUMM (1.4-6.5); ABSOLUTE LYMPH COUNT 2.1 /CUMM (1.2-3.4); ABSOLUTE MONOCYTE COUNT 0.6 /CUMM (0.10-0.60); BASOPHIL % 0.4 % (0.0-2.0); EOSINOPHIL % 3.5 % (0-5); GRANULOCYTE % 64.8 % (42.2-75.2); HEMATOCRIT 37.3 % (37-47); MEAN CORPUSCULAR HGB 29.5 PG (27.0-31.0); MEAN CORPUSCULAR VOLUME 89.3 FL (81.0-99.0); MEAN PLATELET VOLUME 6.7 FL (7.4-10.4); PLATELET COUNT 291 /CUMM (130-400); RBC DISTRIBUTION WIDTH 15.6 % (11.5-14.5); RED BLOOD CELL CT 4.17 /CUMM (4.20-5.40); WHITE BLOOD CELL COUNT 8.6 /CUMM (4.8-10.8)
--- NOTE | 2017-02-17 16:28 | ECHOCARDIOGRAM REPORT ---
ROMEL SHAIKH Age: 86 : 1930 Gender: F Exam Date: 02/17/2017 13:27 Exam Location: [place] Ht (in): 63 Wt (lb): 170 BSA: 1.88 BP: 152 / 82 Ordering Physician: Berenice Back MD Referring Physician: Robb Joshi MD Technologist: Trinidad Henderson [facility] Room Number: 180-02 Indications: HEART FAILURE Rhythm: Sinus Technical Quality: Poor, Technically difficult study FINDINGS Left Ventricle Normal size left ventricle. Mild concentric left ventricular hypertrophy. No obvious regional wall motion abnormalities. Normal left ventricular ejection fraction visually estimated at >65%. Restrictive filling pattern of the left ventricle for age (stage 3 diastolic dysfunction). Right Ventricle Right ventricle at upper limits of normal. Right Atrium Mild right atrial dilatation. Left Atrium Moderate left atrial dilatation. Mitral Valve Moderate mitral annular calcification. Mitral valve thickened. Mild mitral regurgitation. Aortic Valve Aortic valve not well visualized. Diffuse thickening of the aortic valve cusps with reduced excursion. No hemodynamically significant aortic stenosis. No aortic regurgitation. Tricuspid Valve Structurally normal tricuspid valve. Mild tricuspid regurgitation. Severe pulmonary hypertension. Right ventricular systolic pressure estimated to be elevated at 80 mmHg. Pulmonic Valve Pulmonic valve not well visualized, grossly normal. Mild pulmonic regurgitation. Pericardium No pericardial effusion. Great Vessels Normal size aortic root. CONCLUSIONS Normal size left ventricle. Mild concentric left ventricular hypertrophy. No obvious regional wall motion abnormalities. Normal left ventricular ejection fraction visually estimated at > 65%. Restrictive filling pattern of the left ventricle for age (stage 3 diastolic dysfunction). Right ventricle at upper limits of normal. Mild right atrial dilatation. Moderate left atrial dilatation. Mild mitral regurgitation. Mild tricuspid regurgitation. Severe pulmonary hypertension. Mild pulmonic regurgitation. Robb Joshi M.D. (Electronically Signed) Final Date: 17 February 2017 16:27 MEASUREMENTS (Male / Female) Normal Values 2D ECHO LV Diastolic Diameter PLAX 3.8 cm 4.2 - 5.9 / 3.9 - 5.3 cm LV Systolic Diameter PLAX 2.3 cm 2.1 - 4.0 cm LV Fractional Shortening PLAX 39.5 % 25 - 46 % LV Ejection Fraction 2D Teich 70.8 % IVS Diastolic Thickness 1.3 cm LVPW Diastolic Thickness 1.2 cm LV Relative Wall Thickness 0.7 RV Internal Dim ED PLAX 3.7 cm 1.9 - 3.8 cm LVOT Diameter 1.7 cm Aortic Root Diameter 2.3 cm LA Systolic Diameter LX 4.7 cm 3.0 - 4.0 / 2.7 - 3.8 cm LA Volume 81.0 cm 18 - 58 / 22 - 52 cm Ascending Aorta Diameter 2.8 cm DOPPLER AV Peak Velocity 172.0 cm/s AV Peak Gradient 11.8 mmHg AV Mean Velocity 115.0 cm/s AV Mean Gradient 6.0 mmHg AV Velocity Time Integral 37.2 cm LVOT Peak Velocity 124.0 cm/s LVOT Peak Gradient 6.2 mmHg LVOT Mean Velocity 81.5 cm/s LVOT Mean Gradient 3.0 mmHg LVOT Velocity Time Integral 26.6 cm LVOT Stroke Volume 60.4 cm AV Area Cont Eq vti 1.6 cm AV Area Cont Eq pk 1.6 cm MV Peak Velocity 173.0 cm/s MV Peak Gradient 12.0 mmHg MV Mean Velocity 72.5 cm/s MV Mean Gradient 3.0 mmHg Mitral E Point Velocity 141.0 cm/s Mitral A Point Velocity 38.3 cm/s Mitral E to A Ratio 3.7 MV PHT Velocity 172.0 cm/s MV Deceleration [place] 850.0 cm/s MV Pressure Half Time 60.7 ms MV Area PHT 3.6 cm MV Deceleration Time 215.0 ms TR Peak Velocity 434.0 cm/s TR Peak Gradient 75.3 mmHg Right Atrial Pressure 5.0 mmHg Pulmonary Artery Systolic Pressu 80.3 mmHg Right Ventricular Systolic Press 80.3 mmHg PV Peak Velocity 116.0 cm/s PV Peak Gradient 5.4 mmHg PV Mean Velocity 73.6 cm/s PV Mean Gradient 3.0 mmHg PV Velocity Time Integral 25.3 cm LV E' Lateral Velocity 8.6 cm/s Mitral E to LV E' Lateral Ratio 16.4 LV E' Septal Velocity 5.4 cm/s Mitral E to LV E' Septal Ratio 26.3
--- NOTE | 2017-02-19 09:14 | Discharge Summary ---
Visit Information Visit Dates Admission Date: 02/15/17 Discharge Date: 02/17/17 Hospital Course Course Attending Physician: Stew Thurston MD Primary Care Physician: Hernan Villareal MD Hospital Course: Ms. Fragoso is an 86-year-old female with past medical history of hypertension, hyperlipidemia, peripheral vascular disease, diet-controlled diabetes mellitus, breast cancer, dementia, atrial fibrillation on dabigatran who presented with shortness of breath. -On presentation, vital signs were T 97.7, HR 90, RR 22, BP 168/102, saturating 90% on room air. Laboratories were significant for normal CBC, sodium 146, glucose 146, AST 37, calcium 9.6, total bilirubin 1.3, ALT 40, alkaline phosphatase 70, troponin 0.02, BNP 1130, INR 1.20. CXR : Cardiomegaly with pulmonary venous congestion and interstitial edema, most consistent with CHF. She received furosemide and nitroglycerin in the emergency room. #Patient was admitted to the telemetry floor and was treated and evaluated for new onset heart failure. Patient presented with sudden onset of palpitations followed by shortness of breath likely due to episode of atrial fibrillation, along with transient volume overload due to with increased salt intake, Echo showed evidence of Stage 3 Diastolic Dysfunction. Patient was initially diuresed with Lasix 20 mg IV and was started on Cardizem. The patient was evaluated by cardiology. She was monitored on telemetry service and she remained in sinus rhythm. After discussion with cardiology Lasix and Cardizem were discontinued. Lipid panel WNL, TSH/T4 WNL, echo report attached * We are going to hold off on starting AV thea blockers unless there is evidence of rapid atrial fibrillation. Patient will require outpatient cardiac monitoring particularly if she continues to have palpitations * Patient is being discharged on home medications with instructions to follow-up with Dr. Joshi within 1 week of discharge and counseling on low salt diet #Chronic medical problem: diet-controlled diabetes, atrial fibrillation, hyperlipidemia: we continued home dabigatran and simvastatin, #The patient was DNR/DNI during her stay Allergies: Coded Allergies: codeine (Severe, NAUSEA 02/15/17) Pertinent Lab Results: ECHOCARDIOGRAM CONCLUSIONS Normal size left ventricle. Mild concentric left ventricular hypertrophy. No obvious regional wall motion abnormalities. Normal left ventricular ejection fraction visually estimated at > 65%. Restrictive filling pattern of the left ventricle for age (stage 3 diastolic dysfunction). Right ventricle at upper limits of normal. Mild right atrial dilatation. Moderate left atrial dilatation. Mild mitral regurgitation. Mild tricuspid regurgitation. Severe pulmonary hypertension. Mild pulmonic regurgitation. Disposition Summary Disposition Principal Diagnosis: Acute on Chronic Stage 3 Diastolic Dysfunction. Additional Diagnosis: Atrial fibrillation Discharge Disposition: home health services Discharge Instructions General Discharge Information Code Status: Do Not Resucitate/Intubat Patient's Diet: Salt restriction Patient's Activity: As tolerated Follow-Up Instructions/Appts: Please follow-up with PCP within one week of discharge Please follow-up with cardiology within 1 week of discharge Medications at Discharge Discharge Medications: Continue taking these medications: Simvastatin (Simvastatin*) 40 MG TABLET 1 Tablet ORAL Every night Qty = 90 Comments: Last Taken:02/16/17 Time:1700 Dabigatran (Pradaxa) 75 MG CAPSULE 1 Capsule ORAL TWICE DAILY Qty = 60 Comments: Last Taken:02/17/17 Time:1000 AM Acetaminophen (Acetaminophen) 500 MG TABLET 2 Tablet ORAL TWICE DAILY Comments: Last Taken:02/17/17 Time:0000 Vitamin B Complex (Vitamin B Complex) 1 EACH TABLET 1 Tablet ORAL DAILY Comments: NOT GIVEN AT HOSPITAL Copies To: Madelyn ROJAS,Robb Kapoor; Mono ROJAS,Hernan Washington Attending MD Review Statement Documenting Attending: Stew Thurston MD Other Findings: Discharged in stable condition.
== END 2017-02-17 14:40 | DRG 308 ==
LOC: ERH 18:28 → ERHI 21:00 → 1NO 21:00 → ENRESERV 22:12 → ENTRNSPT 22:26 → EDTRNSPTSTS 22:31 → EDTRNSPT 22:31 → 1NO 22:38 → CMPTRNSPT 22:42 → 1NO 02-17 11:41 → ENPENDDIS 02-17 11:59 → 1NO 02-17 14:40
PROVIDERS: Emergency Medicine; Internal Medicine; Internal Medicine Adolescent Medicine
DX: I48.0 Paroxysmal atrial fibrillation (principal); I50.31 Acute diastolic (congestive) heart failure; E11.51 Type 2 diabetes mellitus with diabetic peripheral angiopathy without gangrene; E87.1 Hypo-osmolality and hyponatremia; I42.9 Cardiomyopathy, unspecified; I11.0 Hypertensive heart disease with heart failure; I47.1 Supraventricular tachycardia; E78.5 Hyperlipidemia, unspecified; I70.212 Atherosclerosis of native arteries of extremities with intermittent claudication, left leg; Z85.3 Personal history of malignant neoplasm of breast; Z66 Do not resuscitate; F03.90 Unspecified dementia, unspecified severity, without behavioral disturbance, psychotic disturbance, mood disturbance, and anxiety; R01.1 Cardiac murmur, unspecified; Z79.01 Long term (current) use of anticoagulants
CPT/HCPCS: 1NSP; 36415; 82436; 93005; 93010; 93306; J1940